=== PATIENT | female | born 1970 | race Caucasian/White ===

== ENCOUNTER 2016-08-05 08:54 | Inpatient (IN) ==
[2016-08-05] MEDS ORDERED: NS 1,000 ML IV ONE (09:25)
[2016-08-05] MEDS ORDERED: ZOFRAN IV ONE (09:25)
[2016-08-05] MEDS ORDERED: MORPHINE IV ONE (09:25)
[2016-08-05 10:04] LABS: URINE MICRO REVIEW NEEDED? NO; URINE SOURCE CLEAN CATCH
[2016-08-05 10:04] LABS: MANUAL DIFF NEEDED? NO
[2016-08-05 10:07] LABS: BASO% 0.2 % (0.0-0.8); EOS# 0.03 X1000 (0.0-0.7); EOS% 0.2 % (0.0-10.0); HEMATOCRIT 36.3 % (37.0-47.0); HEMOGLOBIN 12.4 g/dL (12.0-16.0); IMM GRAN# 0.02 X1000 (0.0-0.04); IMM GRAN% 0.2 % (0.0-0.5); LYMPH# 1.12 X1000 (1.2-3.4); LYMPH% 8.5 % (20.5-51.1); MCH 29.8 PG (27-31); MCHC 34.2 g/dL (33-37); MCV 87.3 FL (81-99); MONO# 0.93 X1000 (0.11-0.59); MONO% 7.1 % (1.7-9.3); NEUT% 83.8 % (42.2-75.2); PLT 112 X1000 (130-400); RBC 4.16 XMIL (4.2-5.4)
[2016-08-05 10:20] LABS: BILIRUBIN URINE NEGATIVE (NEGATIVE); BLOOD URINE MODERATE (NEGATIVE); COLOR YELLOW; GLUCOSE URINE NEGATIVE (NEGATIVE); LEUKOCYTES URINE MODERATE (NEGATIVE); NITRITE URINE NEGATIVE (NEGATIVE); PROTEIN URINE 30 mg/dL (NEGATIVE); SP GRAVITY URINE 1.025; TURBIDITY URINE CLEAR (CLEAR); UROBILINOGEN URINE NORMAL (NORMAL)
[2016-08-05 10:21] LABS: UR EPITHELIAL CELLS <10 /HPF (<10); URINE BACTERIA 1+ /HPF; URINE CULTURE NEEDED? YES; URINE RBC <10 /HPF (<10); URINE WBC <10 /HPF (<10)
--- NOTE | 2016-08-05 10:24 | Diag Imaging Result Doc PS360 ---
EXAM: CHEST-PORTABLE HISTORY: Post op TECHNIQUE: COMPARISON: 02/14/2016 FINDINGS: The lungs are well expanded. The heart is not enlarged. The vessels are not distended. No pneumonia. No pleural effusions identified. There is a granuloma in the left base. IMPRESSION: Negative chest Electronically signed by Salo Mayorga 08/05/2016 10:22 AM
[2016-08-05 10:27] LABS: AGAP 14; ALBUMIN 4.3 g/dL (3.5-5.0); ALKALINE PHOSPHATASE 88 U/L (32-104); AMYLASE 32 U/L (20-200); BUN 9 mg/dL (8-22); CALCIUM 9.6 mg/dL (8.8-10.2); CHLORIDE 101 mmol/L (98-107); COSMO 274; GOT 58 U/L (10-30); GPT 106 U/L (10-36); LIPASE 33 U/L (13-60); SODIUM 138 mmol/L (136-145); TCO2 23 mmol/L (25-35); TOTAL BILIRUBIN 0.52 mg/dL (0.20-1.00); TOTAL PROTEIN 7.7 g/dL (6.3-8.3)
--- NOTE | 2016-08-05 11:36 | Diag Imaging Result Doc PS360 ---
EXAM: CT ABD/PELVIS W/ IV CONT ONLY HISTORY: Post op pain TECHNIQUE: Dose reduction technique COMPARISON: 05/22/2016 FINDINGS: Normal spleen, liver, pancreas, gallbladder, adrenal glands, and kidneys. No hydronephrosis. No aortic aneurysm. No bowel obstruction. Normal appendix. The uterus is been removed in the interim. There are inflammatory changes/edema and a small amount of fluid in the pelvis. Long thin irregular fluid collection in the left pelvis measuring approximately 1.0 x 5.5 cm. This may represent a developing abscess. The urinary bladder is distended and appears normal. There are sutures at the rectosigmoid junction. No distinct mass. IMPRESSION: Inflammation with possibly a developing abscess in the left pelvis since the prior exam. Electronically signed by Salo Mayorga 08/05/2016 11:34 AM
[2016-08-05] MEDS ORDERED: FLAGYL 500 MG/NS 500 MG/100 ML IVPB IV ONE (11:54)
[2016-08-05] MEDS ORDERED: LEVAQUIN 750 MG/D5W 750 MG/150 ML IVPB IV ONE (11:54)
--- NOTE | 2016-08-05 11:56 | PROVIDER DOCUMENTATION ---
This chart was entered by Lawanda Wei Scribe, acting as scribe for Jr Duque MD. HPI-General Adult - General Chief Complaint: Post Op Complaint Stated Complaint: post op complaint Time Seen by Provider: 08/05/16 09:08 Source: patient Allergies/Adverse Reactions: Patient Allergies Allergy/AdvReac Type Severity Reaction Status Date / Time No Known Allergies Allergy Verified 08/05/16 09:23 Home Medications: Home Medication List Medication Instructions Recorded Confirmed Last Taken Type Paroxetine [Paxil] 10 mg PO DAILY 08/31/13 08/05/16 08/05/16 History Ketorolac [Toradol] 10 mg PO Q6H PRN PRN #14 tablet 07/25/16 08/05/16 08/05/16 Rx Tramadol [Ultram] 50 mg PO Q6H PRN PRN #20 tablet 07/25/16 08/05/16 4 Days Ago Rx - History of Present Illness -Gen Adult Nature of Presenting Problems: Pt is a 46 year old female who came to the ED with a cc of left sided pelvic pain radiating into the left leg for three days. Pt reports she has a LAVH on because she had a mass on her right ovary. Pt report she has not been taking her pain medication because it is constipating her. Pt reports she also has been having a fever the past two days. Location of Pain/Injury: reports: pelvis Pain Radiation: reports: legs (lower) (left leg) Quality of Pain: reports: sharp Severity: reports: mild Onset/Duration: reports: 3 days ago Timing: reports: still present Modifying Factors: improves with: nothing Associated Symptoms: reports: fever/chills Similar Symptoms Previously?: No Recently seen or treated by another doctor?: Yes Review of Systems - Adult - REVIEW OF SYSTEMS - ADULT Constitutional: reports: chills, fever. denies: fatique, night sweats Eyes: reports: no symptoms reported Ears, Nose, Mouth & Throat: reports: no symptoms reported Cardiovascular: reports: no symptoms reported Respiratory: reports: no symptoms reported Gastrointestinal: reports: abdominal pain. denies: diarrhea, nausea, vomiting Genitourinary: reports: no symptoms reported Musculoskeletal: reports: no symptoms reported Integumentary: reports: no symptoms reported Neurological: denies: loss of balance, seizure Psychiatric: reports: no symptoms reported Endocrine: reports: no symptoms reported Hematologic/Lymphatic: reports: no symptoms reported Allergic/Immunologic: reports: no symptoms reported All Other Systems: Reviewed and Negative Past History - Adult - PAST MEDICAL HISTORY-ADULT Review of Records: reports: Nursing Assessment Review Major Childhood Illnesses: reports: denies history Cardiovascular: reports: denies history Respiratory: reports: COPD Gastrointestinal: reports: denies history Obstetrical/Gynecological: reports: denies history Genitourinary: reports: cancer (colon cancer) Musculoskeletal: reports: denies history Neurological: reports: denies history Psychiatric: reports: anxiety, depression Endocrine/Immune: reports: other (hypoglycemia) Other Conditions: reports: denies history - PRIOR SURGERIES/PROCEDURES Surgical/Procedure History: reports: colonoscopy, BTL, bowel surgery - PRIOR HOSPITALIZATIONS Prior Hospitalizations: reports: none - IMMUNIZATION STATUS Childhood Immunizations: See Nurse Assessment Flu Vaccine: See Nurse Assessment - FAMILY HISTORY Family History: reviewed, not pertinent Physical Exam-General - PHYSICAL EXAM-ADULT Initial Vital Signs Reviewed: Yes - CONSTITUTIONAL General Appearance: alert, mild distress - EYES Eyes: PERRL/EOMI, pink conjunctivae - HEAD, EARS, NOSE, MOUTH & THROAT HENMT: normocephalic/atraumatic, moist mucous membranes - NECK Neck: non-tender, full range of motion - RESPIRATORY Respiratory: chest non-tender, lungs clear - CARDIOVASCULAR Cardiovascular: normal peripheral pulses, regular rate, rhythm - GASTROINTESTINAL (ABDOMEN) Abdominal Exam: normal bowel sounds, soft, tenderness (bilat more on the left side). negative: distended, guarding - MUSCULOSKELETAL Back Exam: normal inspection Extremity: normal range of motion, non-tender - SKIN Integumentary: normal color, normal turgor - NEUROLOGIC Neurologic: grossly normal - PSYCHIATRIC Psych/Mental Status: normal mood/affect, normal thought content, normal thought process, oriented x 3 Progress - PLAN OF CARE/RESULTS Progress/Plan/Lab Results: Vital Signs - 8 hr 08/05/16 08:57 Temperature 98.5 F Pulse Rate 105 H Respiratory Rate 20 Blood Pressure 148/83 O2 Sat by Pulse Oximetry 100 Result Diagrams: 08/05/16 09:42 08/05/16 09:42 - XRAY 1 XRAY Study: Chest (negative) - CT/MRI 1 CT Study: Abdomen (inflammation with possibly a developing abscess in the left pelvis since the prior exam.) - CONSULTS/PCP/HOSPITALIST Notification #1 *Consult/PCP/Hospitalist*: Hospitalist Time Discussed: 11:55 Consult Disposition: Admit Departure - Departure Date of Disposition Decision: 08/05/16 Time of Disposition Decision: 11:55 DIAGNOSIS: Abdominal abscess Disposition: ADMITTED INPATIENT 09 Certified Medical Emergency: Emergent Condition: Stable Referrals and Follow-Ups: Sabina Mcneil CRNP [Primary Care Provider] - - Critical Care Note This patient required my direct & personal management of CC.: No This chart was documented by the indicated scribe, (Lawanda Wei Scribe) and accurately reflects the services I performed and decisions made by me, Jr Duque MD, as attested by the provider's signature.
[2016-08-05 12:29] LABS: INR 0.97; PROTIME 10.2 Seconds (9.2-11.7); PTT 28.7 Seconds (22.0-36.0)
--- NOTE | 2016-08-05 12:57 | HISTORY AND PHYSICAL ---
This is a 46-year-old, who presented. She had a hysterectomy I believe 2 weeks ago and she has experienced in the last several days some pressure and discomfort and pain in the left lower quadrant, left anterior pelvis. Radiates down her leg into her knee and into the left buttock. She has had a little bit of bleeding vaginally since her total hysterectomy. This was done [address] Miller Bailey. The only other significant past medical history, she has had some hiatal hernia, I think history of gastroesophageal reflux. She has had a tubal ligation. She has had tonsillectomy. REVIEW OF SYSTEMS: She has not complained of any weight loss. She stated she feels like she has had fever, subjective fever. She has had a little bit of spotting vaginally. No respiratory difficulty.Cardiovascular: No chest pain, report of palpitations. No real change in bowels or gross hematuria, dysuria. Other past surgery partial colon resection and she is para 2-0-0-2. ALLERGIES: None. FAMILY HISTORY: I think she has an uncle with esophageal cancer and mother had renal failure. I think that was because she reported because of IV contrast as well as other comorbidities. SOCIAL HISTORY: Occasional alcohol. She really does not smoke. PHYSICAL EXAMINATION: GENERAL: She is awake, alert, x3. VITAL SIGNS: Temp 98.5 degrees, pulse 105, respirations 20, blood pressure 140/83. HEENT: Pupils are equal, round. LUNGS: Clear in all lung koenig. CARDIOVASCULAR: Regular rate without murmur or S3. ABDOMEN: Soft. SKIN: Warm and dry. Weight 140 pounds, height 5 feet 4 inches, O2 saturation 100%. LUNGS: Are clear in all lung koenig. CARDIOVASCULAR: Regular rhythm and rate without murmur or S3. CVP is less than 6 cm. ABDOMEN: Soft. Left lower quadrant with tenderness but to deep palpation really no sign of rebound. She is complaining of pain that radiates down into her knee and into the left lateral of buttock and the left perirectal area. SKIN: Is warm and dry. No pedal edema. White count 57469, hematocrit 36, platelet count 112,000. Sodium 138, potassium 4.0, chloride 101, bicarb 23, BUN 9, creatinine 0.6. Liver functions AST 58, ALT 106. CPK is 40. Amylase 32, lipase 33. Urinalysis unremarkable. Chest x-ray: Negative chest. No infiltrates. Abdominal pelvic CT as reported above. Inflammation, possibly developing abscess left pelvis. There is a 1.0 x 5.5 cm long thin irregular fluid collection in the left pelvis. ASSESSMENT AND PLAN: 1. Developing little left pelvic abscess. We will give her some antibiotics. This probably will resolve with antibiotics alone. I will have Dr. Yu look it over. I do not think there is anything that can be drained at this point, or should be drained. I spoke to Dr. Yu and I have also discussed with Dr. Miller Bailey. We will put her on Zosyn 3.375 mg IV q.6h and I think I will use vancomycin as well, load her with 1 g dose per pharmacy. 2. History of colon cancer 2 years ago. She has been cancer free. She had 12 cycles of chemotherapy following a partial colectomy. 3. Nutritional status looks good. 4. She has some pain in the left leg radiating down to the left knee and the pelvis. I think it is probably related to the inflammation and small abscess. We will give her some pain control. cc: Freedom Hester MD
[2016-08-05] MEDS ORDERED: ZOFRAN IV PRN (13:01)
[2016-08-05] MEDS ORDERED: ULTRAM PO PRN (13:01)
[2016-08-05] MEDS ORDERED: TORADOL PO PRN (13:01)
[2016-08-05] MEDS ORDERED: VANCOMYCIN IV PER PHARMACY MISC SCH (13:01)
[2016-08-05] MEDS: NS 1,000 ML IV SCH (13:50)
[2016-08-05] MEDS: ZOSYN 3.375 GM/NS 3.375 GM/50 ML IVPB IV SCH ×2 (13:50→19:02)
[2016-08-05] MEDS: NORCO-7.5 PO PRN ×2 (14:01→19:04)
[2016-08-05] MEDS ORDERED: VANCOMYCIN 1,900 MG in NS 500 ML IV ONE (15:00)
--- NOTE | 2016-08-05 16:19 | CONSULTATION ---
DATE OF CONSULTATION: 08/05/2016 REQUESTING PHYSICIAN: Dr. Hester. CONSULT CONCERNING: Pelvic abscess. HISTORY OF PRESENT ILLNESS: A 46-year-old female well known to me who had a hysterectomy [address] Bailey presenting now with pressure and discomfort in her pelvis. She had a CT scan that was done that showed an abscess. This abscess was not large enough to amenable to drainage by Radiology. She says she is feeling better now. She has had some antibiotics and pain medicine but otherwise reporting left lower quadrant and left anterior pelvis pain. She has been admitted by the hospitalist service for IV antibiotics. PAST MEDICAL HISTORY: Includes gastroesophageal reflux disease, history of colon cancer. PAST SURGICAL HISTORY: Includes tubal ligation, tonsillectomy, partial colectomy, Port-A-Cath placement and subsequent removal. FAMILY HISTORY: Esophageal cancer. Renal failure. SOCIAL: Occasional alcohol. Occasional smoking. ALLERGIES: None. MEDICATIONS: MAR reviewed. Of note, she has been started on antibiotics. REVIEW OF SYSTEMS: A full 10 point review of systems obtained, negative except as specified in the HPI. PHYSICAL EXAM: Vital Signs: Patient is currently afebrile. Her vital signs are stable. General: No acute distress. Resting comfortably in bed. HEENT: Normocephalic, atraumatic. Pupils equal, round, react to light. Mucous membranes moist. Oropharynx benign. Neck: Supple. Trachea midline. Cardiovascular: Regular rate and rhythm. Lungs: Grossly clear. Abdomen: Soft, nondistended. Some tenderness to palpation in suprapubic area but no peritoneal signs. Incision is healing well. Skin: No signs of jaundice. Vascular: All extremities perfused. LABORATORY: White blood cell count is 13, hematocrit 36. Remainder of labs reviewed. IMAGING: CT scan independently reviewed and radiology report reviewed. ASSESSMENT/PLAN: 46-year-old female with pelvic abscess. 1. Pelvic abscess. At this time, patient is clinically doing well. I agree with IV antibiotics for now. Suspect this area is too small to drain by Radiology. Would recommend at least 48 hours antibiotics and a repeat CT scan to evaluate change. 2. History of colon cancer. She appears to be completed with her treatment. I did remove Port- A-Cath. I appreciate the consult. cc: Biju Yu MD
[2016-08-05] MEDS ORDERED: BENADRYL PO PRN (20:27)
[2016-08-06] MEDS: NORCO-7.5 PO PRN ×3 (00:35→09:26)
[2016-08-06] MEDS: ZOSYN 3.375 GM/NS 3.375 GM/50 ML IVPB IV SCH ×3 (03:10→13:18)
[2016-08-06] MEDS: VANCOMYCIN 1,400 MG in NS 250 ML IV SCH ×2 (03:57→14:53)
[2016-08-06 06:09] LABS: MANUAL DIFF NEEDED? NO
[2016-08-06 06:19] LABS: BASO% 0.2 % (0.0-0.8); EOS# 0.04 X1000 (0.0-0.7); EOS% 0.4 % (0.0-10.0); HEMATOCRIT 32.9 % (37.0-47.0); HEMOGLOBIN 11.1 g/dL (12.0-16.0); LYMPH# 1.13 X1000 (1.2-3.4); LYMPH% 11.7 % (20.5-51.1); MCH 29.8 PG (27-31); MCHC 33.7 g/dL (33-37); MCV 88.4 FL (81-99); MONO# 0.88 X1000 (0.11-0.59); MONO% 9.1 % (1.7-9.3); MPV 11.5 FL (7.4-10.4); NEUT% 78.6 % (42.2-75.2); PLT 157 X1000 (130-400); RBC 3.72 XMIL (4.2-5.4)
[2016-08-06 06:30] LABS: AGAP 9; ALBUMIN 3.4 g/dL (3.5-5.0); ALKALINE PHOSPHATASE 75 U/L (32-104); BUN 6 mg/dL (8-22); CALCIUM 8.7 mg/dL (8.8-10.2); CHLORIDE 105 mmol/L (98-107); COSMO 275; GOT 39 U/L (10-30); GPT 77 U/L (10-36); IRON SATURATION 18 %; MAGNESIUM 1.8 mg/dL (1.5-2.7); POTASSIUM 3.9 mmol/L (3.5-5.1); SODIUM 139 mmol/L (136-145); TCO2 25 mmol/L (25-35); TIBC 154 ug/dL; TOTAL BILIRUBIN 0.55 mg/dL (0.20-1.00); TOTAL IRON 28 ug/dL (49-151); TOTAL PROTEIN 6.4 g/dL (6.3-8.3); UNBOUND IRON 126 ug/dL (112-346)
--- NOTE | 2016-08-06 06:41 | PROGRESS NOTE ---
DATE: 08/06/2016 SUBJECTIVE: Patient doing okay. She still reports some pelvic pain but otherwise is doing okay. OBJECTIVE: Vital Signs: Patient is currently afebrile. Her vital signs are stable. General Examination: No acute distress. HEENT: Normocephalic and atraumatic. Pupils equal, round, react to light. Mucous membranes moist. Oropharynx benign. Neck: Supple. Trachea midline. Cardiovascular: Regular rate and rhythm. Lungs: Grossly clear. Abdomen: Soft, nondistended. Some tenderness to palpation in bilateral lower quadrants. No peritoneal signs. Extremities: Moves all extremities. Neurologic: Grossly intact. Skin: No signs of jaundice. Vascular: All extremities perfused. Laboratory: This morning is currently pending. ASSESSMENT/PLAN: A 46-year-old, female with a pelvic abscess. Pelvic abscess. At this time, we will follow up with labs in the morning. We will continue antibiotics. Likely will need to repeat CT scan in the next 24-48 hours to see if there is any change, Overall, I think she is doing well. cc: Biju Yu MD
[2016-08-06] MEDS: NS 1,000 ML IV SCH ×2 (09:19→13:15)
[2016-08-06] MEDS: PAXIL PO SCH (09:20)
[2016-08-06] MEDS: PRILOSEC PO SCH (09:20)
[2016-08-06] MEDS ORDERED: TYLENOL PO PRN (10:58)
[2016-08-06] MEDS ORDERED: DULCOLAX PR PRN (11:02)
[2016-08-06] MEDS ORDERED: MILK OF MAGNESIA PO ONE (11:02)
--- NOTE | 2016-08-06 14:48 | PROGRESS NOTE ---
DATE: 08/06/2016 SUBJECTIVE: She still states that the pain is severe but then she says she only has pain when she gets up and tries to go the bathroom. Does not appear to be constant but that seems to be the main focus in her left thigh around the left lateral buttock and is tight and feels uncomfortable. She has not had any fever, chills.Vital signs: Temperature is 98.7 degrees, pulse 74, respirations 20, blood pressure 116/67. Lungs: Are clear in all lung koenig. Cardiovascular: Regular rhythm and rate without murmur or S3. Abdomen: Soft. Skin: Is warm and dry. Urine output was over 4 L. DATA: CT of the abdomen and pelvis, inflammation with possible developing abscess the left pelvis. There is a thin irregular fluid collection approximately 1 x 5.5 cm. I did not see any bony abnormality. Chest x-ray was unremarkable. Negative chest. ASSESSMENT AND PLAN: 1. Left leg still just uncomfortable. Will follow up with the labs in the morning. Continue present antibiotics. Repeat CT scan probably in the morning see if there is any change, does not appear to be large enough or in a place that would necessitate drainage. 2. Pain in her leg. I am not sure this is irritation on the sciatic nerve or if local sensory nerves but she seems to be very uncomfortable. Will we will continue the [place] which she has 7.5 one to two q.4 hours and continue the present fluid and continue on her present antibiotics which right now is Zosyn and we gave her 1 dose of Levaquin and Flagyl yesterday so plan on doing another CT in the morning. I will make sure she has something for her bowels. She is also given Toradol q.6 hours. cc: Freedom Hester MD
[2016-08-06] MEDS: TYLENOL PO PRN (15:53)
[2016-08-07] MEDS: NORCO-7.5 PO PRN ×4 (01:21→18:08)
[2016-08-07] MEDS: ZOSYN 3.375 GM/NS 3.375 GM/50 ML IVPB IV SCH ×4 (01:22→17:00)
[2016-08-07] MEDS: NS 1,000 ML IV SCH (01:23)
[2016-08-07] MEDS: VANCOMYCIN 1,400 MG in NS 250 ML IV SCH ×2 (06:26→17:29)
--- NOTE | 2016-08-07 06:49 | PROGRESS NOTE ---
DATE: 08/07/2016 SUBJECTIVE: Patient doing okay. Still reports some pelvic pain when she urinated, but otherwise no major changes. OBJECTIVE: Vital Signs: Patient temperature max of 100.1. The remainder of vital signs have been stable. General: No acute distress. HEENT: Normocephalic, atraumatic. Pupils equal, round, reactive to light. Mucous membranes moist. Oropharynx benign. Neck: Supple. Trachea midline. Cardiovascular: Regular rate and rhythm. Lungs: Grossly clear. Abdomen: Soft, nondistended. Some tenderness to palpation bilateral lower quadrants but no peritoneal signs. Extremities: Moves all extremities. Neurologic: Grossly intact. Skin: No signs of jaundice. Vascular: All extremities perfused. LABORATORY: None this morning. CT scan pending. ASSESSMENT/PLAN: A 46-year-old female with pelvic abscess. Pelvic abscess at this time she will have a repeat CT scan. We will follow up with the results. If it is stable or decreasing, we will in all likelihood, transitioned her to p.o. antibiotics and discharge the patient with follow up in my office. cc: Biju Yu MD
--- NOTE | 2016-08-07 08:37 | Diag Imaging Result Doc PS360 ---
EXAM: ABDOMEN/PELVIS W/CONTRAST INDICATION: pelvic abscess COMPARISON: 05/22/2016 FINDINGS: There has been interval hysterectomy. In the surgical resection bed there is a loculated fluid collection consistent with the given history of abscess. It measures approximately 8.7 cm in the greatest axial length and about 1.3 cm in AP thickness. There are extensive inflammatory changes in the mesenteric fat surrounding the fluid collection. No abdominal free gas is appreciated. There is evidence of prior partial colectomy with a stable surgical staple line associated with the rectosigmoid colon. There is no evidence of bowel obstruction. The remainder of the solid viscera of the abdomen and pelvis and the remainder of the GI tract are essentially unremarkable. IMPRESSION: 1.Interval hysterectomy with a loculated fluid collection in the resection bed with extensive surrounding inflammatory stranding consistent with the given history of pelvic abscess. 2.Other incidental/nonacute findings detailed above. Electronically signed by Shay Odonnell 08/07/2016 8:34 AM
--- NOTE | 2016-08-07 10:17 | PROGRESS NOTE ---
DATE: 08/07/2016 SUBJECTIVE: She does states she feels a little better. We had follow up abdominal pelvic CT done today, interval hysterectomy, loculated fluid collection with resection bed with extensive surrounding inflammation standing consistent with given history of pelvic abscess. There a little abscess measures approximately 8.7 cm and about 1.3 an AP thickness, inflammatory changes. Mesenteric surrounding fluid collection. No abdominal free gas is appreciated. ASSESSMENT/PLAN: 1. More than 46-year-old with pelvic abscess at this time. She had a repeat CT scan and we will see what Dr. Yu says. It appears that it measures at 8.7 cm. I do not know if this is truly an enlargement or just a different view. Clinically she seems to be doing better. I will continue IV antibiotics and discuss switching her p.o. antibiotics and maybe go home soon.# 2. Pain in the left leg. I suspect just some irritation from the inflammation in the left pelvis that seems to be doing better. Continue present antibiotics. cc: Freedom Hester MD
[2016-08-07] MEDS: PRILOSEC PO SCH (11:12)
[2016-08-07] MEDS: PAXIL PO SCH (11:12)
[2016-08-07 15:53] VITALS: BP 135/79
[2016-08-07] MEDS: TYLENOL PO PRN (16:06)
--- NOTE | 2016-08-07 16:56 | DISCHARGE SUMMARY ---
ADMISSION DATE: 08/05/2016 DISCHARGE DATE: 08/07/2016 PRIMARY CARE: WENDI Escalera FOLLOWED BY: Dr. Felipe Bailey HOSPITAL COURSE: She had a hysterectomy about [address] Bailey, experienced over the last several days some pressure discomfort in the left lower pelvis and the pain seemed to go around into the left lateral thigh and down into the knee and seemed to be getting worse and tenderness around the left anterior pelvic ring. She had a bit of vaginal spotting. She was followed by Felipe Bailey MD. She presented to the emergency room concerned about the increased pain. CT scan showed a small 1 x 5 cm longitudinal abscess in the left lateral flank. We started her on some empiric antibiotics. She seemed to improve. I discussed the case with Dr. aBiley, but also Dr. Yu evaluated her in the emergency room. Did not see anything to needle biopsy. She improved clinically. Followup CAT scan did not show any significant change and clinically she was much better. So I elected to let her go home on 08/07/2016. We will put her on Flagyl and Levaquin for another 2 weeks. DISCHARGE INSTRUCTIONS: Follow up with Dr. Bailey. Follow up with her nurse practitioner, Sabina Mcneil as well. Continue her other medications from home. She says she has some Toradol. She takes her Paxil 10 mg a day. She has Ultram 50 mg q.6 hours. We will give her Flagyl 500 mg b.i.d. and Levaquin 750 mg daily for another 2 weeks. cc: Freedom Hester MD
== END 2016-08-07 19:02 | disposition home or self-care (01) ==
LOC: ED 08:54 → 4N 08:55
PROVIDERS: ATTEND Emergency Medicine